=== PATIENT | male | born 1945 | race Caucasian/White ===

== ENCOUNTER 2017-05-24 08:10 | Emergency (ER) | payer MEDICARE, BC ==
[~2017-05-24] VITALS: Ht 175.3 cm; Wt 111.1 kg
[2017-05-24] MEDS ORDERED: TRAZODONE HCL 50 MG TABS PO (08:26)
[2017-05-24] MEDS ORDERED: CELECOXIB 200 MG PO (08:26)
[2017-05-24] MEDS ORDERED: NALT5POW PO (08:26)
[2017-05-24] MEDS ORDERED: METHOTREXATE 2.5 MG PO (08:26)
[2017-05-24] MEDS ORDERED: CLONIDINE HCL SUBCUT (08:26)
[2017-05-24] MEDS ORDERED: GOLI50VI IV (08:29)
[2017-05-24] MEDS ORDERED: [UNRECOGNIZED DRUG - OTHER] (08:29)
[2017-05-24] MEDS ORDERED: MULT-1196 PO (08:29)
[2017-05-24] MEDS ORDERED: ASPI81TA31 PO (08:29)
[2017-05-24] MEDS ORDERED: CALC1TAB30 PO (08:29)
[2017-05-24] MEDS ORDERED: FOLI1TAB16 PO (08:30)
--- NOTE | 2017-05-24 08:40 | NUR ---
Dr Reid at the bedside for eval and exam.
[2017-05-24] MEDS: HYDROCODONE/APAP 5-325MG TABLET PO ONE (08:45)
[2017-05-24] MEDS ORDERED: HYDROCODONE/APAP 5-325MG TABLET ONE (08:59)
--- NOTE | 2017-05-24 10:14 | NUR ---
CHAU CALLAHAN SPOKE TO DR MACIAS(ORTHO).
[2017-05-24] MEDS: KETOROLAC TROMETHAMINE 60 MG INJ IM ONE (10:25)
[2017-05-24] MEDS ORDERED: KETOROLAC TROMETHAMINE 60 MG INJ IM ONE (10:39)
[2017-05-24 10:41] VITALS: BP 120/70
--- NOTE | 2017-05-24 10:46 | NUR ---
Patient discharged to home in stable conditon. Written and verbal after care instructions given. Patient verbalizes understanding of instructions. Walked out of ER w/ steady gait.
== END 2017-05-24 10:43 | disposition home or self-care (01) ==
LOC: ER 08:14
DX: S42.211A Unspecified displaced fracture of surgical neck of right humerus, initial encounter for closed fracture (principal); K21.9 Gastro-esophageal reflux disease without esophagitis; M19.90 Unspecified osteoarthritis, unspecified site; Z79.82 Long term (current) use of aspirin; Z88.2 Allergy status to sulfonamides; Z98.84 Bariatric surgery status; W01.0XXA Fall on same level from slipping, tripping and stumbling without subsequent striking against object, initial encounter; Y92.89 Other specified places as the place of occurrence of the external cause; Y93.89 Activity, other specified; Y99.8 Other external cause status
CPT/HCPCS: 29105; 73020; 96372; 99283; A4663; J1885

== ENCOUNTER 2024-01-24 09:38 | Emergency (ER) | payer MEDICARE, BC ==
[~2024-01-24] VITALS: Ht 175.3 cm; Wt 108.4 kg
[~2024-01-24 09:38] MED LIST: ASPI81TA31 PO; CALC1TAB30 PO; CELECOXIB 200 MG PO; CLONIDINE HCL SUBCUT; FOLI1TAB94 PO; GOLI50VI IV; METHOTREXATE 2.5 MG PO; MULT-1196 PO; NALT5POW PO; TRAZODONE HCL 50 MG TABS PO; [UNRECOGNIZED DRUG - OTHER]
[2024-01-24] MEDS ORDERED: BACITRACIN ZINC OINT 15 GM TUBE ONE (10:12)
[2024-01-24] MEDS: BACITRACIN ZINC OINT 15 GM TUBE TOP ONE (10:20)
[2024-01-24] MEDS ORDERED: HYDR-3980 PO (11:55)
[2024-01-24] MEDS ORDERED: LIDO30AD10 TP (11:55)
[2024-01-24 12:06] VITALS: BP 125/76; TEMP 97.8; O2SAT 99
== END 2024-01-24 12:09 | disposition home or self-care (01) ==
LOC: ER 09:38
DX: S22.42XA Multiple fractures of ribs, left side, initial encounter for closed fracture (principal); S70.02XA Contusion of left hip, initial encounter; S50.812A Abrasion of left forearm, initial encounter; S80.212A Abrasion, left knee, initial encounter; S00.81XA Abrasion of other part of head, initial encounter; K21.9 Gastro-esophageal reflux disease without esophagitis; Z98.890 Other specified postprocedural states; Z79.891 Long term (current) use of opiate analgesic; Z79.82 Long term (current) use of aspirin; Z79.899 Other long term (current) drug therapy; Z91.040 Latex allergy status; Z88.2 Allergy status to sulfonamides; Z88.1 Allergy status to other antibiotic agents; W18.39XA Other fall on same level, initial encounter; Y93.89 Activity, other specified; Y92.89 Other specified places as the place of occurrence of the external cause; Y99.8 Other external cause status
CPT/HCPCS: 71101; 73502; A4606; A4663